=== PATIENT | male | born 1980 | race Caucasian/White ===

== ENCOUNTER 2018-01-30 13:34 | Emergency (ER) | payer SELFPAY ==
[2018-01-30 13:52] VITALS: BP 156/99
--- NOTE | 2018-01-30 13:56 | UC ---
Respiratory Complaint HPI - History of Current Complaint Chief Complaint: UCRespiratory Stated Complaint: RESP COMPLAINT Time Seen by Provider: 01/30/18 13:55 Pain Intensity: 3 - Allergies/Home Medications Allergies/Adverse Reactions: Allergies Allergy/AdvReac Type Severity Reaction Status Date / Time hydrocodone Allergy Hives Verified 01/30/18 13:52 Penicillins Allergy Hives Verified 01/30/18 13:52 PMH/Surg Hx/FS Hx/Imm Hx - Surgical History Surgical History: None - Social History Alcohol Use: Rare Substance Use Type: None Smoking Status (MU): Light Every Day Tobacco Smoker Type: Cigarettes Have You Smoked in the Last Year: Yes When Did the Patient Quit Smoking/Using Tobacco: pt in process of quitting Household Exposure Type: Cigarettes - Immunization History Most Recent Influenza Vaccination: never Most Recent Tetanus Shot: 2013 Most Recent Pneumonia Vaccination: never Physical Exam Vital Signs: Initial Vital Signs Temp 98.5 F 01/30/18 13:48 Pulse 82 01/30/18 13:48 Resp 18 01/30/18 13:48 BP 156/99 01/30/18 13:48 Pulse Ox 99 01/30/18 13:48 Diagnostic Evaluation - Laboratory O2 Sat by Pulse Oximetry: 99 Discharge - Discharge Plan Referrals: No Primary Care Phys,NOPCP [Primary Care Provider] -
--- NOTE | 2018-01-30 14:36 | UC ---
Respiratory Complaint HPI - HPI Summary HPI Summary: 1 WEEK H/O COUGH, CONGESTION, BODY ACHES AND EPIGASTRIC DISCOMFORT. NO NAUSEA. DENIES CP, SOB. FEELS OVERALL RUNDOWN AND TIRED. - History of Current Complaint Chief Complaint: UCRespiratory Stated Complaint: RESP COMPLAINT Time Seen by Provider: 01/30/18 13:55 Hx Obtained From: Patient Onset/Duration: Gradual Onset, Lasting Days, Still Present Timing: Constant Severity Initially: Moderate Severity Currently: Moderate Pain Intensity: 3 Pain Scale Used: 0-10 Numeric Character: Cough: Nonproductive Aggravating Factors: Nothing Alleviating Factors: Nothing Associated Signs And Symptoms: Positive: URI, Nasal Congestion. Negative: Fever , Wheezing - Allergies/Home Medications Allergies/Adverse Reactions: Allergies Allergy/AdvReac Type Severity Reaction Status Date / Time hydrocodone Allergy Hives Verified 01/30/18 13:52 Penicillins Allergy Hives Verified 01/30/18 13:52 PMH/Surg Hx/FS Hx/Imm Hx GI/ History: Gastroesophageal Reflux - Surgical History Surgical History: None - Family History Known Family History: Negative: Hypertension - Social History Alcohol Use: Rare Substance Use Type: None Smoking Status (MU): Light Every Day Tobacco Smoker Type: Cigarettes Have You Smoked in the Last Year: Yes When Did the Patient Quit Smoking/Using Tobacco: pt in process of quitting Household Exposure Type: Cigarettes - Immunization History Most Recent Influenza Vaccination: never Most Recent Tetanus Shot: 2013 Most Recent Pneumonia Vaccination: never Review of Systems Constitutional: Fatigue ENT: Sore Throat, Ear Ache, Nasal Discharge Respiratory: Cough Cardiovascular: Negative Gastrointestinal: Abdominal Pain Musculoskeletal: Myalgia All Other Systems Reviewed And Are Negative: Yes Physical Exam Triage Information Reviewed: Yes Appearance: Well-Appearing, No Pain Distress, Well-Nourished Vital Signs: Initial Vital Signs Temp 98.5 F 01/30/18 13:48 Pulse 82 01/30/18 13:48 Resp 18 01/30/18 13:48 BP 156/99 01/30/18 13:48 Pulse Ox 99 01/30/18 13:48 Vital Signs Reviewed: Yes Eyes: Positive: Conjunctiva Clear ENT: Positive: Hearing grossly normal, Pharynx normal, TMs normal Neck: Positive: Supple, Nontender, No Lymphadenopathy Respiratory Exam: Normal Cardiovascular Exam: Normal Abdomen Description: Positive: Soft, Other: - MILDLY TENDER EPIGASTRIC AREA. NO REBOUND OR RIGIDITY. Negative: CVA Tenderness (R), CVA Tenderness (L), Distended, Guarding Bowel Sounds: Positive: Present Musculoskeletal: Positive: No Edema Neurological: Positive: Alert Psychological: Positive: Age Appropriate Behavior Skin: Negative: rashes UC Diagnostic Evaluation - Laboratory O2 Sat by Pulse Oximetry: 99 Respiratory Course/Dx - Course Course Of Treatment: DISCUSSED POSSIBILITY OF PANCREATITIS GIVEN EPIGASTRIC DISCOMFORT. PT IN NO ACUTE DISTRESS AND DENIES NAUSEA AT TIME OF EXAM. PT ALSO STATES PAIN DOES NOT FEEL LIKE REFLUX. DENIES CP. OFFERED TRANSFER TO ED FOR FURTHER EVAL. PT DECLINES. SX COULD BE C/W VIRAL SYNDROME. FLU SWAB NEG. ADVISED CONSERVATIVE MGMT. TO ED IF SX WORSEN. - Differential Dx/Diagnosis Provider Diagnoses: ACUTE VIRAL SYNDROME Discharge - Sign-Out/Discharge Documenting (check all that apply): Patient Departure All imaging exams completed and their final reports reviewed: No Studies - Discharge Plan Condition: Stable Disposition: HOME Patient Education Materials: Viral Syndrome (ED) Forms: *Work Release Referrals: No Primary Care Phys,NOPCP [Primary Care Provider] - Additional Instructions: FLU TEST NEGATIVE. YOUR SYMPTOMS ARE LIKELY VIRALLY MEDIATED AND SHOULD RESOLVE ON THEIR OWN WITH TIME. NO INDICATION FOR ANTIBIOTICS AT PRESENT. REST, HYDRATE , OTC MEDS NEEDED. SEEK FOLLOW-UP IF YOU ARE NOT IMPROVING OVER THE NEXT 1-2 WEEKS. CALL THE NUMBER BELOW FOR ASSISTANCE IN ESTABLISHING WITH A PCP An additional resource available to assist in finding the appropriate physician for your health care needs is [facility] ([facility]). You may contact them by calling [phone]. - Billing Disposition and Condition Condition: STABLE Disposition: Home
== END 2018-01-30 14:35 | disposition home or self-care (01) ==
LOC: UCEAST 13:34
DX: B34.9 Viral infection, unspecified (principal); Z88.5 Allergy status to narcotic agent; Z88.0 Allergy status to penicillin; F17.210 Nicotine dependence, cigarettes, uncomplicated
CPT/HCPCS: 99201; G0463